=== PATIENT | male | born 1990 | race African-American/Black ===

== ENCOUNTER 2024-03-29 07:50 | Emergency (ER) | payer MEDICAID, OTHER ==
[~2024-03-29] VITALS: Ht 167.6 cm; Wt 85.0 kg
[2024-03-29 09:44] VITALS: BP 155/97; PULSE 78; RESP 18; TEMP 98.7; O2SAT 100
== END 2024-03-29 09:47 | disposition home or self-care (01) ==
LOC: ER 07:50
DX: L60.0 Ingrowing nail (principal)

== ENCOUNTER 2024-10-06 16:36 | Emergency (ER) | payer MEDICAID ==
[~2024-10-06] VITALS: Ht 167.6 cm; Wt 93.7 kg
--- NOTE | 2024-10-06 17:06 | ED.PDOC ---
SOB-HPI HPI Comments HPI: Poor Historian. 33-year-old male with a history of asthma presents to emergency department for sensation of dyspnea that started today. He said it surgery triggered by dust. Denies any other acute symptoms. Patient did not take his breathing treatment at home because it was . Initial Vital Signs: Temp : 98.8F BP: 158/101 HR: 92 RR: 20 SpO2: 99% Past Medical History: Denies Past Surgical History: Denies Social History: Denies smoking, ETOH, or drug use. Medications: No medications. Allergies: NKDA REVIEW OF SYSTEMS: CONSTITUTIONAL: Denies acute: fever, diaphoresis, chills, generalized weakness. HEAD: Denies acute: headache, photophobia Eyes: Denies acute: Double vision, vision loss, eye pain, eye discharge. EARS: Denies acute: tinnitus, hearing loss, ear discharge, ear pain, THROAT: Denies acute: sore throat, swelling, difficulty swallowing , pain with swallowing, change in voice. NECK: Denies acute: neck pain, neck swelling, stiff neck. HEART: Denies acute : chest pain, palpitations, LUNGS: Denies acute: wheezing, cough, hemoptysis ABDOMEN: Denies acute: abdominal pain, Nausea, Vomiting, diarrhea, melena , hematemesis, hematochezia SKIN: Denies acute: rash, redness, lesions, itchiness. EXTREMITIES: Denies acute: calf pain, numbness, tingling, weakness, denies pain in extremity. Denies acute: Low back pain. Neuro: Denies acute: focal neurological deficit, motor or sensory focal neurological deficit, tremors, seizure like activity, confusion, dizziness, change in mental status, loss of bowel or bladder function, cauda equina like symptoms. : Denies acute: dysuria, hematuria, flank pain, increase in urinary frequency. PSYCH: Denies acute: hallucination, suicidal ideation, homicidal ideation. PHYSICAL EXAM: General: no acute distress, awake and alert. Head: normocephalic, atraumatic. Neck: supple, trachea is midline, no swelling. Throat: Normal phonation. Eyes:, no erythema, no purulent discharge, no proptosis, no icterus. Heart: regular rate, regular rhythm, no significant murmur appreciated. Lungs: no apparent respiratory distress, Able to speak in full sentences. No wheezing, no rhonchi, no crackles. No stridors Clear to auscultation bilaterally. Abdomen: non tender to palpation, non distended, soft, no guarding, no rebound, + bowel sounds. Neuro: Awake, Alert, oriented to name, self, situation, follows commands GCS=15. Speech is normal. Skin: no petechia, no purpura, no cyanosis, non-pale, not jaundice. Lower extremities: --no - Pitting edema no deformity, no focal swelling, no calf TTP. Makes eye contact. moves all four extremities. Face: no apparent facial droop. Ambulating in the ED independently. ED COURSE: Chief Complaint: Asthma Time Seen by MD: 17:03 Primary Care Provider: NONE Reviewed notes: Medications, Allergies Information Source: Patient Mode of Arrival: Ambulatory Was a procedure done? Was a procedure done?: No Differential Dx Differential Diagnosis: Other (DDx include ACS, unstable angina, anxiety, PE, pneumothroax, neoplasm, cardiac ischemia, COPD, asthma, CHF, pleural effusion, tobacco abuse, pneumonia, hypoxia, hypercapnia, anemia., infection/sepsis., pulmonary edema. Asthma, Cardiac tamponade, infection.) X-Ray, Labs, Meds, VS Vital Signs Date Time Temp Pulse Resp B/P (MAP) Pulse Ox O2 Delivery O2 Flow Rate FiO2 10/06/24 20:40 98.3 74 18 153/81 (105) 98 98.3 10/06/24 20:40 74 18 98 Room Air* 0 21 10/06/24 19:08 74 17 99 Room Air* 0 21 10/06/24 19:03 74 17 99 Room Air 10/06/24 19:03 98.9 74 17 147/75 (99) 99 98.9 10/06/24 18:02 18 97 Room Air* 0 21 10/06/24 17:49 72 10/06/24 16:55 20 99 Room Air* 0 21 10/06/24 16:55 98.8 92 20 158/101 (120) 99 10/06/24 16:47 86 Lab Test 10/06/24 18:13 10/06/24 17:10 Range/Units Troponin I High Sensitivity 3 L 3 L </=54 ng/L White Blood Count 8.4 4.4-10.8 10^3/uL Red Blood Count 5.88 4.5-5.90 10^6/uL Hemoglobin 16.2 13.5-17.5 g/dL Hematocrit 49.7 41.0-53.0 % Mean Corpuscular Volume 84.4 80.0-100.0 fL Mean Corpuscular Hemoglobin 27.6 L 28.0-32.0 pg Mean Corpuscular Hemoglobin Concent 32.7 32.0-36.0 g/dL Red Cell Distribution Width 14.0 11.8-14.3 % Platelet Count 293 140-450 10^3/uL Mean Platelet Volume 8.4 6.9-10.8 fL Neutrophils (%) (Auto) 51.9 37.0-80.0 % Lymphocytes (%) (Auto) 34.8 10.0-50.0 % Monocytes (%) (Auto) 9.6 0.0-12.0 % Eosinophils (%) (Auto) 2.8 0.0-7.0 % Basophils (%) (Auto) 0.9 0.0-2.0 % Neutrophils # (Auto) 4.3 1.6-8.6 10 ^3/uL Lymphocytes # (Auto) 2.9 0.4-5.4 10 ^3/uL Monocytes # (Auto) 0.8 0-1.3 10 ^3/uL Eosinophils # (Auto) 0.2 0-0.8 10 ^3/uL Basophils # (Auto) 0.1 0-0.2 10 ^3/uL Nucleated Red Blood Cells 0.2 % D-Dimer, Quantitative < 0.19 0.0-0.49 mg/L FEU Sodium Level 138 136-145 mmol/L Potassium Level 4.1 3.5-5.1 mmol/L Chloride Level 101 98-107 mmol/L Carbon Dioxide Level 28 20-31 mmol/L Anion Gap 9 5-15 Blood Urea Nitrogen 10 9-23 mg/dL Creatinine 1.09 0.700-1.30 mg/dL Glomerular Filtration Rate Calc 92 >90 mL/min BUN/Creatinine Ratio 9.2 L 10.0-20.0 Serum Glucose 79 74-106 mg/dL Lactic Acid Level 1.1 0.4-2.0 mmol/L Calcium Level 10.0 8.7-10.4 mg/dL Total Bilirubin 0.3 0.2-1.0 mg/dL Aspartate Amino Transferase (AST) 30 13-40 U/L Alanine Aminotransferase (ALT) 66 H 7-40 U/L Alkaline Phosphatase 86 46-116 U/L B-Type Natriuretic Peptide 8.17 0-100 pg/mL Total Protein 7.1 5.7-8.2 g/dL Albumin 4.6 3.2-4.8 g/dL Current Medications Medications (Trade) Dose Ordered Sig/Catie Route Start Time Stop Time Status Last Admin Albuterol (Ventolin Medneb) 2.5 mg ONCE ONCE NEB 10/06/24 17:00 10/06/24 17:01 DC 10/06/24 18:00 Ipratropium Ophiem (Atrovent Medneb) 1 mg ONCE ONCE NEB 10/06/24 17:00 10/06/24 17:01 DC 10/06/24 18:00 Methylprednisolone Sodium Succinate (Solu Medrol) 125 mg ONCE ONCE IV 10/06/24 17:00 10/06/24 17:01 DC 10/06/24 19:06 [place] [id number] Ph: [phone] DIAGNOSTIC IMAGING Diagnostic Imaging Report : [id number] Signed PATIENT: BRIELLE CHAUDHRY ACCT: [id number] UNIT: [id number] : 1990 LOC: ER ROOM / BED: / AGE / SEX: 33 / M ADM STATUS: REG ER SERVICE 52 ORDERING PHYSICIAN: ALBIN MAYER DO PROCEDURE(s): CXRP - CHEST PORTABLE REASON: sob ORDER NUMBER(s): [id number], ACCESSION NUMBER(s): [id number] CHEST RADIOGRAPH Indication: sob Technique: Single frontal view of the chest was obtained Comparison: None FINDINGS: Lines and Tubes: None Lungs: No focal consolidation. Pleura: No effusion. No pneumothorax. Cardiomediastinal contours: Unremarkable Bones: No acute osseous abnormality. IMPRESSION: 1. No acute cardiopulmonary disease. HS:Y ATED BY: HODA OCONNOR Jr., DO DICTATED DATE/TIME: 10/06/241807 SIGNED BY: HODA OCONNOR Jr., SIGNED DATE/TIME: 10/06/241807 CC: Time of 1ST Reevaluation: 18:03 Reevaluation 1ST: Unchanged Time of 2ND Reevaluation: 18:46 Reevaluation 2ND: Resolved Patient Education/Counseling: Diagnosis, Treatment Family Education/Counseling: No Family Present Comments Patient presented with the above HPI.--hospitalist----workup was initiated. patient was found with the above mentioned diagnosis. the following medications were ordered: please refer to order lists of meds and tests obtained by myself Dr. Mayer. Patient ED course and VS have been stabilized. Patient has been reassessed in the ED and remained in a stable condition. Pertinent incidental findings were discussed with the patient and/or family. Patient/family voices understanding and is agreeable with plan. Patient has been observed in the ED adequate length of time to insure improvement/stability. Escalation of care considered: Consideration of escalation to observation or admission Patient was DISCHARGED home in a stable condition. All the reports of any imaging studies that were ordered by myself were reviewed by myself. Departure 1 Departure Time of Disposition: 18:46 Impression: Primary Impression: Acute asthma Disposition: 01 HOME / SELF CARE / HOMELESS Condition: Stable Additional Instructions: Additional discharge instructions: You MUST follow-up with your primary care/family doctor in 1 to 2 days. If you are unable to see your primary care/family doctor, please return to our emergency room for re-assessment and re-evaluation in 1 to 2 days. Return to the emergency room here in our facility or to the nearest ER [facility] if your symptoms change or worsen. CONSULTATIONS: you MUST Follow-up for consultation as soon as possible with: -pulmonology in 1-2 days. Please call for appointment. You MUST call the consultants office yourself to make an appointment. You may need to arrange that through your insurance and/or your primary/family doctor. If you are unable to see the sales operations consultant in 1 to 2 days, you must return to our emergency room (or any other ER of your choice) for re-assessment and re- evaluation. Adequate fluid hydration. e-Prescriptions Prednisone (Prednisone) 20 Mg Tab 20 MG PO DAILY for 5 Days, #5 TAB Prov: ALBIN MAYER DO 10/06/24 Albuterol Sulfate (Albuterol Sulfate Hfa) 108 Mcg/Act Aer 108 MCG IN Q4HPRN PRN for 7 Days, #1 AER Prov: ALBIN MAYER DO 10/06/24 Discharged With: Self Critical Care Note Critical Care Time?: No I personally scribed for ALBIN MAYER DO ([email or web address]) on 10/06/24 at 17:06. Electronically submitted by Elliott Argueta ([email or web address]). I personally scribed for ALBIN MAYER DO ([email or web address]) on 10/06/24 at 20:26. Electronically submitted by Monica Treadwell ([email or web address]). ALBIN MAYER DO Oct 06, 2024 17:06
[2024-10-06 17:35] LABS: Basophils # (auto) 0.1 10 ^3/uL (0-0.2); Basophils % (auto) 0.9 % (0.0-2.0); Eosinophils # (auto) 0.2 10 ^3/uL (0-0.8); Eosinophils % (auto) 2.8 % (0.0-7.0); Hematocrit 49.7 % (41.0-53.0); Hemoglobin 16.2 g/dL (13.5-17.5); Lymphocytes # (auto) 2.9 10 ^3/uL (0.4-5.4); Lymphocytes % (auto) 34.8 % (10.0-50.0); Mean Corpuscular Hemoglobin 27.6 pg (28.0-32.0); Mean Corpuscular Hgb Conc. 32.7 g/dL (32.0-36.0); Mean Corpuscular Volume 84.4 fL (80.0-100.0); Monocytes # (auto) 0.8 10 ^3/uL (0-1.3); Monocytes % (auto) 9.6 % (0.0-12.0); Neutrophils # (auto) 4.3 10 ^3/uL (1.6-8.6); Neutrophils % (auto) 51.9 % (37.0-80.0); Nucleated Red Blood Cells % 0.2 %; Platelet Count (auto) 293 10^3/uL (140-450); Red Blood Cells 5.88 10^6/uL (4.5-5.90); White Blood Cell 8.4 10^3/uL (4.4-10.8)
[2024-10-06 17:55] LABS: Albumin 4.6 g/dL (3.2-4.8); Alkaline Phosphatase 86 U/L (46-116); Anion Gap 9 (5-15); BUN/Creatinine Ratio 9.2 (10.0-20.0); Blood Urea Nitrogen 10 mg/dL (9-23); Carbon Dioxide 28 mmol/L (20-31); Chloride 101 mmol/L (98-107); Glucose 79 mg/dL (74-106); Potassium 4.1 mmol/L (3.5-5.1); Sodium 138 mmol/L (136-145)
[2024-10-06 17:56] LABS: Bilirubin, Total 0.3 mg/dL (0.2-1.0); Total Protein 7.1 g/dL (5.7-8.2)
[2024-10-06 17:59] LABS: Alanine Aminotransferase 66 U/L (7-40)
[2024-10-06 18:00] LABS: Aspartate Aminotransferase 30 U/L (13-40)
[2024-10-06] MEDS: IPRATROPIUM BROM 0.5 MG/2.5ML INH SOL NEB ONE (18:00)
[2024-10-06] MEDS: ALBUTEROL SULF 2.5 MG/0.5ML(0.5%) NEB SOLN NEB ONE (18:00)
--- NOTE | 2024-10-06 18:10 | DVH ---
CHEST RADIOGRAPH Indication: sob Technique: Single frontal view of the chest was obtained Comparison: None FINDINGS: Lines and Tubes: None Lungs: No focal consolidation. Pleura: No effusion. No pneumothorax. Cardiomediastinal contours: Unremarkable Bones: No acute osseous abnormality. IMPRESSION: 1. No acute cardiopulmonary disease. HS:Y
[2024-10-06] MEDS ORDERED: PRED20TA2 PO (18:47)
[2024-10-06] MEDS ORDERED: ALBU108A5 IN (18:47)
[2024-10-06] MEDS: methylPREDNISolone SOD SUCC 125 MG/2 ML VL IV ONE (19:06)
[2024-10-06 19:08] VITALS: PULSE 74; RESP 17; O2SAT 99
[2024-10-06 20:40] VITALS: BP 153/81; PULSE 74; RESP 18; TEMP 98.3; O2SAT 98
--- NOTE | 2024-10-07 10:38 | ECG ---
[facility] Test Date: 2024-10-06 Test Time: 16:47:29 Pat Name: BRIELLE CHAUDHRY Department: ER Room: Gender: Shareholder: AMIE : 1990 Requested By: ALBIN MAYER Order Number: [id number] Reading MD: Jose Carlos Ellis Measurements Intervals [place] Rate: 86 P: 71 IA: 128 QRS: 87 QRSD: 92 T: -15 QT: 356 QTc: 426 Interpretive Statements Sinus rhythm Borderline repolarization abnormality Borderline ST elevation, anterior leads Electronically Signed On 10-09-2024 17:40:14 PST by Jose Carlos Ellis Please click the below link to view image of tracing.
--- NOTE | 2024-10-07 12:24 | ECG ---
[facility] Test Date: 2024-10-06 Test Time: 17:49:12 Pat Name: BRIELLE CHAUDHRY Department: ER Room: Gender: M Manager Mental Health: [place] : 1990 Requested By: ALBIN MAYER Order Number: [id number] Reading MD: Jose Carlos Ellis Measurements Intervals [place] Rate: 72 P: 72 DC: 135 QRS: 88 QRSD: 95 T: 15 QT: 426 QTc: 467 Interpretive Statements Sinus rhythm Consider right atrial enlargement RSR' in V1 or V2, probably normal variant Borderline ST elevation, anterior leads Electronically Signed On 10-09-2024 17:40:26 PST by Jose Carlos Ellis Please click the below link to view image of tracing.
== END 2024-10-06 20:45 | disposition home or self-care (01) ==
LOC: ER 16:36
DX: J45.909 Unspecified asthma, uncomplicated (principal)
CPT/HCPCS: 36415; 71045; 80053; 83605; 83880; 84484; 85025; 85379; 93005; 94640; 96374; 99285; J2919

== ENCOUNTER 2025-03-07 08:52 | Emergency (ER) | payer MEDICAID ==
[~2025-03-07] VITALS: Ht 167.6 cm; Wt 96.8 kg
[~2025-03-07 08:52] MED LIST: ALBU108A5 IN; PRED20TA2 PO
--- NOTE | 2025-03-07 09:38 | ED.PDOC ---
HPI Allergic reaction HPI Comments 34-year-old male with no past medical history presents to the emergency department with a chief complaint of rash. Patient is seen has been experiencing an intermittent rash since 2022. Patient states he noticed a bump on his testicle with itchiness and no pain. For the generalized rash, patient noticed aloe vera improves rash. No other symptoms or modifying factors present at this time. Denies pelvic pain Denies nausea vomiting diarrhea Denies dysuria urgency frequency Denies history of UTI Denies blood in the urine or semen Denies recent instruments/toys and urethra Denies current tobacco use Denies family history of prostate issues Chief Complaint: Rash Time Seen by MD: 09:25 Primary Care Provider: NONE Reviewed Notes: Nurses Notes, Medications, Allergies Allergies: Coded Allergies: NO KNOWN ALLERGIES (Unverified , 03/29/24) Home Meds Active Scripts Prednisone (Prednisone) 20 Mg Tab, 20 MG PO DAILY for 5 Days, #5 TAB Prov:ALBIN MAYER DO 10/06/24 Albuterol Sulfate (Albuterol Sulfate Hfa) 108 Mcg/Act Aer, 108 MCG IN Q4HPRN PRN for 7 Days, #1 AER Prov:ALBIN MAYER DO 10/06/24 Information Source: Patient Mode of Arrival: Ambulatory Severity: Moderate Timing: Months Duration: Since onset Prehospital treatment: None Location: Generalized Exposed to: Unknown Developed: Rash History of: None Past Medical History PAST MEDICAL HISTORY: Denies Surgical History: Denies all surgeries Family History Family History: Reviewed,noncontributory to illness, No family hx of Cancer, No family hx of DM, No family hx of Heart leidy, No family hx of HTN, No family hx ofKidney leidy, No family hx of Liver leidy, No family hx of Lung leidy, No family hx of Stroke Social History Smoker: Non-Smoker Alcohol: Denies ETOH Use Drugs: Denies Drug Use Lives In: Home All Other Systems: Reviewed and Negative (as per HPI) Physical Exam General Appearance: Normal HEENT: Normal ENT Inspection, Pharynx Normal, TMs Normal Neck: Full Range of Motion, Non-Tender, Normal, Normal Inspection Respiratory: Chest Non-Tender, Lungs Clear, No Accessory Muscle Use, No R espiratory Distress, Normal Breath Sounds Cardiovascular: No Murmur, No Gallop, Regular Rate/Rhythm Breast Exam: Deferred Gastrointestinal: No Organomegaly, Non Tender, No Pulsatile Mass, Normal Bowel Sounds, Soft Genitalia: Other (Penile shaft normal. No visible discharge, no swelling erythema. Bilateral testicles are nonerythematous and nonedematous. No high- riding testes. No TTP.) Pelvic: Deferred Rectal: Deferred Extremities: No calf tenderness, Normal capillary refill, Normal inspection, Normal range of motion, Non-tender, No pedal edema Musculoskeletal : Apperance: Normal Neurologic: Alert, plastics patternmaker II-XII nml as Tested, No Motor Deficits, Normal Affect, Normal Mood, No Sensory Deficits Cerebellar Function: Normal Reflexes: Normal Skin: Dry, Normal Color, Warm Lymphatic: No Adenopathy Was a procedure done? Was a procedure done?: No Differential diagnosis (all) Differential Diagnosis: Other X-Ray, Labs, Meds, VS Vital Signs Date Time Temp Pulse Resp B/P (MAP) Pulse Ox O2 Delivery O2 Flow Rate FiO2 03/07/25 09:54 86 17 97 Room Air 03/07/25 09:54 98.7 86 16 156/101 (119) 97 98.7 03/07/25 09:06 99.1 94 16 160/98 (118) 99 99.1 Lab Test 03/07/25 09:31 Range/Units Urine Color Light-yellow Yellow Urine Clarity Clear Clear Urine pH 7.0 5.0-9.0 Urine Specific [place] 1.023 1.001-1.035 Urine Protein Negative Negative Urine Ketones Negative Negative Urine Blood Negative Negative /uL Urine Nitrite Negative Negative Urine Bilirubin Negative Negative Urine Urobilinogen Normal Negative mg/dL Urine Leukocyte Esterase Negative Negative /uL Urine RBC 1 0 - 3 /hpf Urine Microscopic WBC < 1 0-3 /HPF Urine Squamous Epithelial Cells None seen <5 /hpf Urine Bacteria None seen None Seen /hpf Urine Glucose Normal Normal mg/dL Chlamydia trachomatis (MEKHI) Pending Neisseria gonorrhoeae (MEKHI) Pending X-Ray, Labs, Meds, VS Comment 34-year-old male with no past medical history presents to the emergency department with a chief complaint of rash. Patient arrives alert and oriented, ABC's intact, afebrile, vital signs stable, saturating well in room air labs were ordered. Urinalysis was ordered to rule out UTI or hematuria. chlamydia amplification was ordered. On reevaluation, patient had symptomatic improvement. Patient is stable for discharge at this time. External notes reviewed. Test results and diagnostic imaging interpreted. All diagnostic findings, discharge care, education and instructions provided Follow-up with PCP in 2 to 3 days Patient verbalized understanding and agreed to treatment plan Vital signs stable, afebrile, no acute distress noted Patient ambulatory with strong steady gait Advised to return precautions for any new or worsening symptoms, return to ER immediately for re-evaluation Additional MDM Review of External, Non-ED records: External records reviewed. Discussion with independent historian (EMS, family) history obtained from the patient/parents (if applicable) at bedside Chronic conditions affecting care: None Social determinants of health affecting care: None Consideration of admission (observation or admission): I considered escalation of care to admission for this patient, however given the reassuring workup, the patient is safe for outpatient management. Patient is aware that the purpose of this visit was for an acute medical emergency requiring emergent stabilization. Chronic conditions, including malignancies have not been ruled out. Patient is instructed to follow up with PCP as directed and discharge instructions for continued care and workup. If unable to arrange follow-up, patient is to return to the emergency department for reassessment. Patient (parent or legal guardian if applicable) was given verbal and written discharge instructions and acknowledges understanding. Time of 1ST Reevaluation: 09:55 Reevaluation 1ST: Improved Patient Education/Counseling: Diagnosis, Treatment Family Education/Counseling: No Family Present SEPSIS Sepsis Screen Physician Orders Chlamydia/Gc Amplification (03/07/25 09:31) Vital Signs Date Time Temp Pulse Resp B/P (MAP) Pulse Ox O2 Delivery O2 Flow Rate FiO2 03/07/25 09:54 86 17 97 Room Air 03/07/25 09:54 98.7 86 16 156/101 (119) 97 98.7 03/07/25 09:06 99.1 94 16 160/98 (118) 99 99.1 Departure 1 Departure Time of Disposition: 10:18 Impression: Primary Impression: Epidermoid cyst of testis Disposition: 01 HOME / SELF CARE / HOMELESS Condition: Stable Critical Care Note Critical Care Time?: No Stability Stability form required: No Heart Score Heart Score: Heart Score Response (Comments) Value History N/A 0 EKG N/A 0 Age N/A 0 Risk Factors N/A 0 Troponin N/A 0 Total 0 I personally scribed for YASMANY CORNELIUS NP [email or web address]) on 03/07/25 at 09:38. Electronically submitted by Eloina Humphrey ([email or web address]). I personally scribed for YASMANY CORNELIUS NP ([email or web address]) on 03/07/25 at 09:45. Electronically submitted by Eloina Humphrey ([email or web address]). YASMANY CORNELIUS NP Mar 07, 2025 09:38
[2025-03-07 09:54] VITALS: BP 156/101; PULSE 86; RESP 17; TEMP 98.7; O2SAT 97
[2025-03-07 10:08] LABS: Urine Protein, UAD Negative (Negative)
[2025-03-09 02:06] LABS: Chlamydia Trachomatis, NAA Negative (Negative); Neisseria gonorrhoeae, NAA Negative (Negative)
== END 2025-03-07 10:23 | disposition home or self-care (01) ==
LOC: ER 08:57
DX: N44.2 Benign cyst of testis (principal); Z79.899 Other long term (current) drug therapy
CPT/HCPCS: 81001